=== PATIENT | female | born 1985 | race Caucasian/White ===

== ENCOUNTER → 2019-12-19 09:14 | Outpatient (CLI) | payer BC, SELFPAY ==
--- NOTE | ~2019-12-19 | XR_ITS ---
EXAMINATION: XR chest 2V DATE: 12/19/2019 09:28 INDICATION: Segmental and somatic dysfunction of the rib cage. TECHNIQUE: PA and lateral views of the chest were obtained. COMPARISON: None FINDINGS: The lungs are clear with no focal airspace opacities, pulmonary edema, pleural effusion or pneumothor ax. The cardiomediastinal silhouette is normal. Bilateral breast implants. Mild thoracic spondylosis. Bones are otherwise unremarkable. IMPRESSION: 1. No acute cardiopulmonary disease. Reviewed, dictated and finalized at location A.
== END ==
PROVIDERS: PCP Family Medicine; Visit Provider Family Medicine
DX: M99.08 Segmental and somatic dysfunction of rib cage (principal)
CPT/HCPCS: 71046

== ENCOUNTER → 2022-01-20 08:58 | Outpatient (CLI) | payer BC, SELFPAY ==
--- NOTE | ~2022-01-20 | US_ITS ---
US soft tissue lower back DATE: 01/20/2022 09:15 INDICATION: Localized swelling, lump at mid lower back for one day. Pain for 3 days. TECHNIQUE: Real-time and color flow imaging targeted to mid lower back at the area of the reported pa lpable lump COMPARISON: None FINDINGS: There is an approximately 3.4 x 2.7 x 3.6 mm hypoechoic nonspecific solid lesion with inter nal vascularity on color flow imaging. IMPRESSION: Nonspecific approximately 3.6 mm mass with internal vascularity at area of clinical compl aint of lump Reviewed, dictated and finalized at Location A. Reviewed, dictated and finalized at location A. IMPRESSION: Nonspecific approximately 3.6 mm mass with internal vascularity at area of clinical complaint of lump
--- NOTE | ~2022-01-20 | XR_ITS ---
XR thoracic spine 3V DATE: 01/20/2022 10:56 INDICATION: Back pain TECHNIQUE: AP, lateral, swimmer views COMPARISON: None FINDINGS: There is minimal levoscoliosis and mild degenerative spurring of the thoracic spine. No fracture or bone destruction. The thoracic pedicles are intact. No paraspinal soft tissue thickeni ng. IMPRESSION: Minimal levoscoliosis Mild degenerative spurring Reviewed, dictated and finalized at location A.
--- NOTE | ~2022-01-20 | XR_ITS ---
XR lumbar spine 2-3V DATE: 01/20/2022 10:56 INDICATION: Back pain TECHNIQUE: AP, lateral, coned lateral lumbosacral views COMPARISON: None FINDINGS: Normal alignment of the lumbar spine. No fracture or bone destruction or spondylolisthesis. Lumbar and included lower thoracic pedicles are intact. Lumbar and lumbosacral interspaces are well preserved. 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
== END ==
PROVIDERS: PCP Family Medicine; Visit Provider Family Medicine
DX: R22.2 Localized swelling, mass and lump, trunk (principal); M54.9 Dorsalgia, unspecified; M85.38 Osteitis condensans, other site
CPT/HCPCS: 72072; 72100; 76705

== ENCOUNTER → 2022-01-24 13:24 | Outpatient (CLI) | payer BC, SELFPAY ==
--- NOTE | ~2022-01-24 | MR_ITS ---
EXAMINATION: MR thoracic spine wo/w con DATE: 01/24/2022 14:37 INDICATION: Localized swelling, mass, and lump, trunk. TECHNIQUE: Magnetic resonance imaging (MRI) of the thoracic spine was performed without and with 15 m L MultiHance intravenous contrast. COMPARISON: Thoracic spine radiographs 01/20/2022 FINDINGS: Bone alignment is normal. There is mild chronic anterior wedging of T7 vertebral body. Ther e are Schmorl's nodes at multiple levels. Intervertebral disc heights are normal. The disc does not e xtend beyond the endplate margins. There is multilevel facet joint osteoarthritis. On the right, ther e is mild neural foraminal stenosis at T4-T5. On the left, there is mild neural foraminal stenosis at T4-T5 and T5-T6. The spinal cord signal intensity is normal. The conus medullaris is at T12-L1. Ther e is a skin marker superficial to the T12 spinous process. There is no abnormal mass in this area. IMPRESSION: 1. No abnormal mass in the patient's area of concern. 2. Mild thoracic spondylosis. Reviewed, dictated and finalized at location B.
[2022-01-24 13:58] LABS: Estimated Glomerular Filt Rate > 60
== END ==
PROVIDERS: PCP Family Medicine; Visit Provider Family Medicine
DX: R22.2 Localized swelling, mass and lump, trunk (principal); M47.815 Spondylosis without myelopathy or radiculopathy, thoracolumbar region; M48.05 Spinal stenosis, thoracolumbar region
CPT/HCPCS: 72157; A9577

== ENCOUNTER 2023-06-21 09:05 | Outpatient (CLI) | payer BC, SELFPAY ==
[2023-06-21 16:34] LABS: Hematocrit 40.6 % (37.0-47.0); Mean Corpuscular Hemoglobin 30.5 pg (26-34); Mean Corpuscular Volume 95.3 fl (80-100); Mean Platelet Volume 11.2 fl (7.4-10.4); Platelet Count Result 238 k/mm3 (150-375); Red Blood Count 4.26 M/mm3 (4.2-5.4); Red Cell Distribution Width 12.1 % (11.5-14.5); White Blood Count 4.1 K/mm3 (4.5-10.0)
[2023-06-21 19:50] LABS: Alanine Aminotransferase 44 U/L (6-35); Albumin Level 4.4 g/dL (3.5-5.1); Alkaline Phosphatase 55 U/L (38-126); Anion Gap 4 mmol/L (8-16); Aspartate Amino Transferase 46 U/L (14-36); Bilirubin,Total 0.6 mg/dL (0.2-1.3); Blood Urea Nitrogen 11 mg/dL (7-17); Calcium 9.5 mg/dL (8.4-10.2); Carbon Dioxide 28 mmol/L (22-30); Chloride 104 mmol/L (98-107); Cholesterol 175 mg/dL (0-200); Estimated Glomerular Filt Rate > 60; Glucose 82 mg/dL (65-110); HDL Direct 89 mg/dL; Potassium 4.4 mmol/L (3.4-5.0); Sodium 136 mmol/L (137-145); Triglycerides 37 mg/dL (<150)
[2023-06-21 20:01] LABS: LDL Cholesterol Direct 65 mg/dL
[2023-06-25 03:48] LABS: Vitamin D 1,25 (OH)2 Total <8 pg/mL (18-72); Vitamin D2 1,25 (OH)2 <8 pg/mL; Vitamin D3 1,25 (OH)2 <8 pg/mL
== END 2023-06-21 09:06 | disposition home or self-care (01) ==
LOC: ANHGOSHLAB 09:08
PROVIDERS: PCP Family Medicine; Visit Provider Family Medicine
DX: F41.9 Anxiety disorder, unspecified (principal); E66.3 Overweight; E55.9 Vitamin D deficiency, unspecified; Z79.899 Other long term (current) drug therapy
CPT/HCPCS: 36415; 80053; 80061; 82652; 84443; 85027

== ENCOUNTER → 2023-08-09 15:03 | Outpatient (CLI) | payer BC, SELFPAY ==
--- NOTE | ~2023-08-09 | XR_ITS ---
EXAMINATION: XR chest 2V DATE: 08/09/2023 15:19 INDICATION: Cough. TECHNIQUE: Frontal and lateral views of the chest were obtained. COMPARISON: Chest 2 views 12/11/2019 FINDINGS: There are airspace opacities in left lower lung zone. No pleural effusion or pneumothorax. The heart size is normal. Breast implants are noted. IMPRESSION: 1. Airspace opacities in left lower lung zone, consistent with atelectasis versus pneumonia. Reviewed, dictated and finalized at location A. 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 Airspace opacities in left lower lung zone, consistent with atelectasis vers us pneumonia.
== END ==
PROVIDERS: PCP Family Medicine; Visit Provider Family Medicine
DX: R05.9 Cough, unspecified (principal); R91.8 Other nonspecific abnormal finding of lung field
CPT/HCPCS: 71046

== ENCOUNTER 2023-09-22 11:30 | Emergency (ER) | payer BC, SELFPAY ==
[2023-09-22 12:01] VITALS: BP 128/98; PULSE 81; RESP 20; TEMP 36.1; O2SAT 100
--- NOTE | 2023-09-22 12:16 | ED.FEMALEGU ---
HPI - Female Genitourinary General Chief complaint: Urogenital-Female Stated complaint: UTI SYMPTOMS Time Seen by Provider: 09/22/23 12:16 Source: patient Mode of arrival: ambulatory Limitations: no limitations History of Present Illness HPI Narrative: 38-year-old female presents with complaint of dysuria, urgency, frequency, low back pain for friend to 6 days. Afebrile. Denies nausea vomiting. No abdominal pain. No concern for . All systems reviewed and negative except as noted above. Related Data Allergies Allergy/AdvReac Type Severity Reaction Status Date / Time amoxicillin Allergy Unknown yeast Verified 08/09/23 11:51 infection Review of Systems Review of Systems: CONSTITUTIONAL: Denies fever, chills, or sweats. EYES: Denies visual changes, redness, or discharge. ENT: Denies rhinorrhea, congestion, sore throat, or otalgia. CARDIOVASCULAR: Denies chest pain, palpitations, or edema. RESPIRATORY: Denies cough or dyspnea. GASTROINTESTINAL: Denies abdominal pain, nausea, vomiting, or diarrhea. GENITOURINARY: Reports dysuria, frequency, urgency. Denies hematuria. SKIN: Denies rash or itching. MUSCULOSKELETAL: Denies back pain, joint pain, or myalgia. NEUROLOGIC: Denies headache, numbness, or weakness. PSYCHIATRIC: Denies anxiety or depression. All other systems reviewed are negative, except as documented in HPI. PMFSH Social History Social History (Updated 06/21/23 @ 08:19 by eGraldine Calvo MA) Smoking status: Never smoker Alcohol intake: current Alcohol use details: weekends Substance use: never Substance use type: does not use Lack of Transportation: No Lack of Food: Never True Current Housing: I Have Housing Concerned About Future Housing: No Difficulty Paying Gas/Electric Bills: No Difficulty Paying for Meds: No Currently Unemployed: No Education: Trade/Vocational Certificate Living arrangements: with family Occupation/Education: occupation Comments At time of signature, agree with nursing past medical, surgical, social and family history. There is no relevant family history pertinent to the presenting complaint. Exam Narrative: GENERAL: This is a well-nourished, well-developed patient, in no apparent distress. HEAD: normocephalic, atraumatic. EYES: PERRL. Sclera clear/white. Vision is grossly intact. EARS: External ears normal NOSE: External nose normal NECK: Neck supple, non-tender without lymphadenopathy, masses or thyromegaly. CARDIOVASCULAR: Regular rate and rhythm without murmurs, gallops, or rubs. RESPIRATORY: Clear to auscultation. Breath sounds equal bilaterally. No wheezes, rales, or rhonchi. SKIN: warm, Dry, intact with no suspicious lesions or rash, good texture and turgor. NEURO: awake, alert, and oriented to person, place and time. There were no obvious focal neurologic abnormalities. EXTREMITIES: No joint tenderness, effusion, or edema noted. Course Course Level of Care: Express Care Visit Vital Signs Vital signs: Vital Signs Temperature 36.1 C L 09/22/23 12:01 Pulse Rate 81 09/22/23 12:01 Respiratory Rate 20 09/22/23 12:01 Blood Pressure 128/98 H 09/22/23 12:01 Pulse Oximetry 100 09/22/23 12:01 Oxygen Delivery Room Air 09/22/23 12:01 Temperature 36.1 C L 09/22/23 12:01 Pulse Rate 81 09/22/23 12:01 Respiratory Rate 20 09/22/23 12:01 Blood Pressure 128/98 H 09/22/23 12:01 Pulse Oximetry 100 09/22/23 12:01 Oxygen Delivery Room Air 09/22/23 12:01 Reviewed MDM - Female Genitourinary MDM Narrative Medical decision making narrative: Patient is aware of diagnosis, understands and agrees to treatment plan. Anticipatory guidance given. Patient agrees to follow-up as directed and is aware of reasons to seek care at the emergency department. Portions of this record may have been created with voice recognition software Calluses positive for leukocytes and blood. Will treat with Ba
== END 2023-09-22 12:42 | disposition home or self-care (01) ==
PROVIDERS: Emergency Provider Nurse Practitioner Family; PCP Family Medicine
DX: N39.0 Urinary tract infection, site not specified (principal)
CPT/HCPCS: 81003; 99213; G0463

== ENCOUNTER 2024-04-10 12:27 | Outpatient (CLI) | payer BC, SELFPAY | END 2024-04-10 12:28 | PROVIDERS: PCP Family Medicine; Visit Provider Student in an Organized Health Care Education/Training Program | DX: M79.674 Pain in right toe(s) (principal); S99.921A Unspecified injury of right foot, initial encounter; X58.XXXA Exposure to other specified factors, initial encounter | CPT/HCPCS: 73630 ==

== ENCOUNTER 2024-11-19 08:10 | Outpatient (CLI) | payer BC, SELFPAY | END 2024-11-19 08:11 | disposition home or self-care (01) | LOC: GOSHIMG 08:11 | PROVIDERS: PCP Nurse Practitioner; Visit Provider Nurse Practitioner | DX: M79.89 Other specified soft tissue disorders (principal) | CPT/HCPCS: 73620 ==

== ENCOUNTER 2024-12-01 10:16 | Outpatient (CLI) | payer BC, SELFPAY ==
[2024-12-01 13:45] LABS: Alanine Aminotransferase 29 U/L (6-35); Albumin Level 4.6 g/dL (3.5-5.1); Alkaline Phosphatase 59 U/L (38-126); Anion Gap 11 mmol/L (4-12); Aspartate Amino Transferase 46 U/L (14-36); Bilirubin,Total 0.5 mg/dL (0.2-1.3); Blood Urea Nitrogen 16 mg/dL (7-17); Calcium 9.7 mg/dL (8.4-10.2); Carbon Dioxide 25 mmol/L (22-30); Chloride 103 mmol/L (98-107); Cholesterol 158 mg/dL (0-200); Estimated Glomerular Filt Rate > 60; Glucose 84 mg/dL (65-110); HDL Direct 69 mg/dL; Potassium 4.5 mmol/L (3.4-5.0); Sodium 139 mmol/L (137-145); Triglycerides 34 mg/dL (<150)
[2024-12-01 13:57] LABS: LDL Cholesterol Direct 65 mg/dL
[2024-12-01 14:28] LABS: Hematocrit 41.3 % (37.0-47.0); Hemoglobin 13.4 g/dL (12.0-15.0); Mean Corpuscular HGB Conc 32.4 g/dl (32-36); Mean Corpuscular Volume 92.4 fl (80-100); Mean Platelet Volume 11.6 fl (7.4-10.4); Platelet Count Result 242 k/mm3 (150-375); Red Blood Count 4.47 M/mm3 (4.2-5.4); White Blood Count 4.7 K/mm3 (4.5-10.0)
== END 2024-12-01 10:17 | disposition home or self-care (01) ==
LOC: ANHGOSHLAB 10:17
PROVIDERS: PCP Family Medicine; Visit Provider Family Medicine
DX: R74.8 Abnormal levels of other serum enzymes (principal); F41.9 Anxiety disorder, unspecified; E55.9 Vitamin D deficiency, unspecified; E66.9 Obesity, unspecified; Z79.899 Other long term (current) drug therapy
CPT/HCPCS: 36415; 80053; 80061; 82652; 84443; 85027

== ENCOUNTER 2025-01-06 08:09 | Outpatient (CLI) | payer BC, SELFPAY ==
[2025-01-06 13:51] LABS: Alanine Aminotransferase 18 U/L (6-35); Albumin Level 4.3 g/dL (3.5-5.1); Alkaline Phosphatase 45 U/L (38-126); Anion Gap 9 mmol/L (4-12); Aspartate Amino Transferase 33 U/L (14-36); Bilirubin,Total 0.5 mg/dL (0.2-1.3); Blood Urea Nitrogen 9 mg/dL (7-17); Calcium 9.5 mg/dL (8.4-10.2); Carbon Dioxide 24 mmol/L (22-30); Chloride 104 mmol/L (98-107); Estimated Glomerular Filt Rate > 60; Glucose 66 mg/dL (65-110); Potassium 4.4 mmol/L (3.4-5.0); Sodium 137 mmol/L (137-145)
== END 2025-01-06 08:10 | disposition home or self-care (01) ==
LOC: ANHGOSHLAB 08:10
PROVIDERS: PCP Family Medicine; Visit Provider Family Medicine
DX: R74.8 Abnormal levels of other serum enzymes (principal); Z79.899 Other long term (current) drug therapy
CPT/HCPCS: 36415; 80053

== ENCOUNTER 2025-01-15 01:10 | Day surgery (SDC) | payer BC, SELFPAY ==
[2025-01-06 09:13] VITALS: BMI 28.8
--- NOTE | 2025-01-06 09:39 | SUR.PREOP ---
Report to the Outpatient Waiting Room, entrance under the green pavilion located off [facility], at time 1200 on date 01/15/25. Planned Procedure Time:1400.? Time changes happen often and if your time is changed the preop area will call you the afternoon before. - You and your visitor will be asked to self-screen and do not enter if you have any COVID symptoms. Please call surgeon if you need to reschedule. - A mask is optional within the hospital at this time. Patients may have clear liquids (water, carbonated beverages, clear teas, apple juice) until 3 hours prior to surgery with a maximum of 20 ounces. - No food from midnight until time of surgery and no smoking, or chewing tobacco (or any form of nicotine). No chewing gum, candy or mints. - Infants may have breast milk until 4 hours before surgery, infant formula 6 hours prior to surgery. - Children will be allowed to drink immediately following surgery.? If applicable, please bring a bottle or sippy cup to assist with drinking. Juice, water, soda, and popsicles are readily available.? For infants on formula, please bring formula the day of surgery.? Pacifiers are allowed. Take only the following medications with a SIP of water on the morning of surgery: n/a DO NOT STOP ANY OF YOUR OTHER PRESCRIPTION MEDICATIONS PRIOR TO SURGERY EXCEPT THE FOLLOWING Hold all vitamins and supplements for 3 days per anesthesiologist. Medications to discontinue per physician ___pt stated she is holding tirzepatide for 2 weeks, hold multivitamins for 3 days prior to surgery___ Date to take last dose Please no make-up, nail z[place], hairspray, perfume, deodorant, or body powder the day of surgery.? No jewelry (including any body piercings) or valuables the day of surgery, leave them at home.? Please take a shower or bath the night before, or the morning of, surgery with an antibacterial soap.? Wear comfortable, loose fitting clothing.? Children are encouraged to wear pajamas. - Jewelry must be removed prior to entering the operating room.? Rings and piercings that are not removed may be cut off. - The hospital will not accept responsibility for valuables.? - Please leave all valuables, including medications, at home the day of surgery. If you are going home after surgery, a licensed service car driver must drive you home.? - NO public transportation without another adult if you receive anesthesia. - We recommend that an adult stay with you for 24 hours following discharge. - We also recommend that you do not drive, make important decision, drink alcoholic beverages, or take any drugs that were not prescribed by your health care provider for at least 24 hours after your discharge time. For Pediatric surgeries, we recommend two adults accompany the child home. Follow any additional instructions given to you from your surgeon. Telephone instructions given to _patient_and asked if any additional questions and then verbalized understanding. Patient advised to call surgeon office or pre surgery nurse liaison [phone] if any additional questions.
--- NOTE | 2025-01-12 13:08 | P.HP_ITS ---
H&P: HPI History of Present Illness Date/Time: 01/12/25 13:08 Chief Complaint: Excessive heavy vaginal bleeding Narrative: 31-year-old 3 para 3 admitted for hysteroscopy/dilatation curettage secondary to heavy bleeding. Ultrasound showed some irregular thickening of the upper part of the uterus. She will undergo hysteroscopy dilatation curettage. Risks and benefits reviewed including exclusive of , aspiration pneumonia cut off under to the bladder, ureters, or other intolerance of the open laparotomy. She received the ACOG handout entitled hysteroscopy as well as dilatation curettage. She had all questions answered. She asked to proceed Review of Systems Review of Systems: CONSTITUTIONAL: Denies fever, chills, or sweats. EYES: Denies visual changes, redness, or discharge. ENT: Denies rhinorrhea, congestion, sore throat, or otalgia. CARDIOVASCULAR: Denies chest pain, palpitations, or edema. RESPIRATORY: Denies cough or dyspnea. GASTROINTESTINAL: Denies abdominal pain, nausea, vomiting, or diarrhea. GENITOURINARY: Reports dysuria, frequency, urgency. Denies hematuria. SKIN: Denies rash or itching. MUSCULOSKELETAL: Denies back pain, joint pain, or myalgia. NEUROLOGIC: Denies headache, numbness, or weakness. PSYCHIATRIC: Denies anxiety or depression. All other systems reviewed are negative, except as documented in HPI. [facility] Social History Social History Smoking status: Never smoker Alcohol intake: current Alcohol use details: weekends Substance use: never Substance use type: does not use Lack of Transportation: No Lack of Food: Never True Current Housing: I Have Housing Concerned About Future Housing: No Difficulty Paying Gas/Electric Bills: No Difficulty Paying for Meds: No Currently Unemployed: No Education: Trade/Vocational Certificate Living arrangements: with family Occupation/Education: occupation Meds Home Medications and Allergies Home Medications ?Medication ?Instructions ?Recorded ?Confirmed ?Type tirzepatide (weight loss) 5 mg/0.5 5 mg (0.5 mL) subcut WEEKLY #2 mL 12/10/24 01/06/25 Rx mL subcutaneous pen injector (Zepbound) Allergies Allergy/AdvReac Type Severity Reaction Status Date / Time amoxicillin Allergy Unknown yeast Verified 01/06/25 09:38 infection Exam Const: General: cooperative, healthy appearing, comfortable and average body habitus Orientation/consciousness: oriented to person, oriented to place and oriented to time HENMT: Head: normal to inspection Resp: Effort & Inspection: normal respiratory effort Cardio: Rate: regular rate Rhythm: regular rhythm Heart sounds: S1 normal heart sound present and S2 normal heart sound present GI: Inspection: normal to inspection : External Female Exam: normal external appearance Speculum Exam - Vagina: normal appearance of the vagina Speculum Exam - Cervix: normal appearance of the cervix Bimanual exam- vagina & uterus: soft Bimanual Exam- Adnexa, other: normal adnexae Assessment and Plan Assessment and plan (1) Menorrhagia: Code(s): N92.0 - Excessive and frequent menstruation with regular cycle Status: Acute Plan Will proceed with hysteroscopy/dilatation and curettage
--- NOTE | 2025-01-15 07:26 | WPDHPUPDATE1 ---
History and Physical Update Update Date/Time: 01/15/25 07:26 History and Physical has been reviewed, including an updated exam of the patient. There are NO changes in the patient's condition. Risks, benefits, and alternatives have been discussed and questions answered. Patient agrees to proceed with procedure.
--- NOTE | 2025-01-15 11:08 | P.PNAN_ITS ---
Anes - Initial Pre Proc Eval Procedure: Operation Date: 01/15/25 12:30 Proposed Procedures p Hysteroscopy Dilation and Curettage - Manohar Deshpande MD Date/Time: 01/15/25 11:08 Surgeon: Manohar Deshpande MD Pre Op Diagnosis: heavy bleeding Patient Data Age: 39 Gender: F Height: 1.73 m Weight: 86.18 kg Allergies Allergy/AdvReac Type Severity Reaction Status Date / Time amoxicillin Allergy Unknown yeast Verified 01/06/25 09:38 infection Home Medications ?Medication ?Instructions ?Recorded ?Confirmed ?Type tirzepatide (weight loss) 5 mg/0.5 5 mg (0.5 mL) subcut WEEKLY #2 mL 12/10/24 01/06/25 Rx mL subcutaneous pen injector (Zepbound) hydrocodone 5 mg-acetaminophen 325 1 tablet PO Q4H PRN pain #14 tabs 01/15/25 Rx mg tablet Patient hx anesthesia problems: none Family hx anesthesia problems: none Results Review: All pre-operative results and documents have been reviewed as part of the pre- operative evaluation. [facility] Social History Social History Smoking status: Never smoker Alcohol intake: current Alcohol use details: weekends Substance use: never Substance use type: does not use Lack of Transportation: No Lack of Food: Never True Current Housing: I Have Housing Concerned About Future Housing: No Difficulty Paying Gas/Electric Bills: No Difficulty Paying for Meds: No Currently Unemployed: No Education: Trade/Vocational Certificate Living arrangements: with family Occupation/Education: occupation Anes - Eval Final PreProcedure Day of Procedure 01/15/25 11:08 Patient weight: overweight Heart: regular rate and rhythm Lungs: clear to auscultation Airway: Mallampati scale class II Neurological: alert and oriented Last oral intake: >/= 8 hours ASA classification: II Emergent: no Anesthetic plan: proceed Anesthesia type and monitoring: general GIVS and standard monitoring Results Review: All pre-operative results and documents have been reviewed as part of the pre- operative evaluation. Informed Consent: The patient's anesthetic plan and its attendant risks and benefits were discussed with the patient/family/POA. Questions were solicited and answers provided to the satisfaction of the patient/family/POA.
[2025-01-15 11:24] VITALS: BP 125/83; PULSE 86; TEMP 36.9; BMI 29.0
[2025-01-15] MEDS: LACTATED RINGERS 1,000 ML 30 ML IV CONT (11:27)
[2025-01-15] MEDS: SCOPOLAMINE 1 MG PATCH 1 PATCH TRANSDERM (11:27)
[2025-01-15] MEDS: ACETAMINOPHEN 500 MG TABLET 1000 MG PO (11:28)
[2025-01-15 11:30] LABS: BEDSIDEPREGUCG Negative (Negative)
[2025-01-15] MEDS: KETOROLAC 30 MG/ML VIAL (*BKC) IV PUSH (12:16)
[2025-01-15] MEDS: LIDOCAINE 1% LOCAL INJ 10 ML VIAL INFILTRATE (12:19)
--- NOTE | 2025-01-15 12:26 | W.PM.PROC2 ---
Procedure Note - Detailed Date of Procedure 01/15/25 Pre-op Diagnosis heavy bleeding Post-op Diagnosis Same Procedure Performed Hysteroscopy/dilatation curettage/polypectomy Surgeon Manohar Deshpande MD Anesthesia MAC and Local Indications 39-year-old history of thickened endometrium imaging Findings Small uterine polyp with fundus. Benign thick endometrial tissue present. Description of Procedure Patient was prepped draped in the normal sterile fashion placed in the dorsal lithotomy position. Under excellent IV sedation weighted speculum placed in posterior fornix vagina. Anterior lip of the cervix grasped with a single-tooth tenaculum. 2.5cc of 1% xylocaine anesthesia placed equally at 2, 4, 8, 10:00 a.m. of the cervix. Uterus sounded to 8cm. Serial dilatation fragmented dilators followed by passage of the 5mm visualizing saline was used as visualizing medium. Small polyp was seen at the uterine fundus and thickened endometrial tissue. The uterus was scraped over the entire 360? after used using the small along with the polyp. Instruments withdrawn blood loss estimated 5cc. All sponge, needle, instrument counts were immediate complications Estimated Blood Loss 5 Drains No Packing No Pathology Yes Complications No immediate complications Condition Stable Disposition PACU
[2025-01-15 12:28] VITALS: BP 83/56; PULSE 77; RESP 16; O2SAT 98
[2025-01-15] MEDS: oxyCODONE HCL (*CRX) 5 MG TAB IR PO (12:56)
[2025-01-15 12:58] VITALS: BP 101/61; PULSE 69; RESP 18
[2025-01-15 13:28] VITALS: BP 119/76; PULSE 65; RESP 18
== END 2025-01-15 13:42 | disposition home or self-care (01) ==
PROVIDERS: PCP Family Medicine; Visit Provider Obstetrics & Gynecology
PROC: 0U5B8ZZ Destruction of Endometrium, Via Natural or Artificial Opening Endoscopic (ICD-10-PCS; CPT 58563; principal; 2025-01-15 12:30)
DX: R93.89 Abnormal findings on diagnostic imaging of other specified body structures (principal); N84.0 Polyp of corpus uteri; Z79.85 Long-term (current) use of injectable non-insulin antidiabetic drugs; Z79.891 Long term (current) use of opiate analgesic
CPT/HCPCS: 58558; 88305; A9270; J1885; J2003; J2250; J2405; J2704; J3010; J7120

== ENCOUNTER 2025-08-05 12:57 | Outpatient (CLI) | payer BC, SELFPAY ==
--- OUTSIDE RECORDS SUMMARY | 2025-08-05 13:42 | XMS_ITS ---
Author Organization Unknown ENCOUNTERS Encounter Performer Location Date Diagnosis Diagnosis Status Outpatient [facility] [address] [place] [address] [id number] Outpatient [facility] [address] [place] [address] [id number] JOSE EDUARDO Outpatient [facility] [address] [place] [address] [id number] JOSE EDUARDO Outpatient [facility] [address] [place] [address] [id number] JOSE EDUARDO Outpatient [facility] [address] [place] [id number] JOSE EDUARDO *Note: Encounters from your own facility or health system may be excluded. Allergies, Adverse Reactions, Alerts Allergen Type Severity Identification Date codeine drug allergy 3 [id number] amoxicillin drug allergy 3 [id number] Medications Name Date Quantity Days Supplied GPI Number
[2025-08-05 14:27] LABS: Hematocrit 36.8 % (37.0-47.0); Hemoglobin 11.8 g/dL (12.0-15.0); Immature Granulocyte Percent A 0.2 % (0-0.5); Lymphocytes Absolute Auto 1.63 K/mm3 (0.9-3.2); Mean Corpuscular HGB Conc 32.1 g/dl (32-36); Mean Corpuscular Hemoglobin 29.6 pg (26-34); Mean Corpuscular Volume 92.5 fl (80-100); Nucleated Red Blood Cells Absolute Auto 0.000 K/mm3 (0.0-0.012); Nucleated Red Blood Cells Perc 0.0 % (0.0-0.2); Platelet Count Result 187 k/mm3 (150-375); Red Blood Count 3.98 M/mm3 (4.2-5.4); White Blood Count 4.4 K/mm3 (4.5-10.0)
== END 2025-08-05 12:58 | disposition home or self-care (01) ==
LOC: ANHSURGERY 13:01
PROVIDERS: PCP Family Medicine; Visit Provider Obstetrics & Gynecology
DX: N92.0 Excessive and frequent menstruation with regular cycle (principal); R10.20 Pelvic and perineal pain unspecified side
CPT/HCPCS: 36415; 85025; 86850; 86900; 86901

== ENCOUNTER 2025-08-13 01:39 | Day surgery (SDC) | payer BC, SELFPAY ==
[2025-08-04 10:42] VITALS: BMI 21.6
--- NOTE | 2025-08-04 10:51 | PC.NURSE ---
[facility] has started construction of its new state of the art ER which will open Spring 2026. With this, we anticipate parking may be a challenge for some our surgical patients and families. Parking spaces are limited but are available for all Surgical, obstetrics, and ER patients sharing this lot. If you arrive and find you are having a hard time finding a parking space, please note that we understand the challenges, please drive around the hospital and park near Hospital Entrance 1. When you enter this entrance, you can ask a volunteer to direct or take you back to the surgical waiting area to check in. We appreciate everyone?s understanding of these expected challenges while we build for your future. Report to the Outpatient Waiting Room, entrance under the green pavilion located off [address], at time _0930_ on date _[id number]_. Planned Procedure Time: _1130_.? Time changes happen often and if your time is changed the preop area will call you the afternoon before. - You and your visitor will be asked to self-screen and do not enter if you have any COVID symptoms. Please call surgeon if you need to reschedule. - A mask is optional within the hospital at this time. Patients may have clear liquids (water, carbonated beverages, clear teas, apple juice) until 3 hours prior to surgery with a maximum of 20 ounces. - No food from midnight until time of surgery and no smoking, or chewing tobacco (or any form of nicotine). No chewing gum, candy or mints. Take only the following medications with a SIP of water on the morning of surgery: ___None____ DO NOT STOP ANY OF YOUR OTHER PRESCRIPTION MEDICATIONS PRIOR TO SURGERY EXCEPT THE FOLLOWING Hold all vitamins and supplements for 3 days per anesthesiologist. Medications to discontinue per physician Patient last took Zepbound 07-26-2025. Continue to hold until after surgery.____ Date to take last dose Please no make-up, nail citizen of [place], hairspray, perfume, deodorant, or body powder the day of surgery.? No jewelry (including any body piercings) or valuables the day of surgery, leave them at home.? Please take a shower or bath the night before, or the morning of, surgery with an antibacterial soap.? Wear comfortable, loose fitting clothing.? - Jewelry must be removed prior to entering the operating room.? Rings and piercings that are not removed may be cut off. - The hospital will not accept responsibility for valuables.? - Please leave all valuables, including medications, at home the day of surgery. If you are going home after surgery, a licensed tram driver must drive you home.? - NO public transportation without another adult if you receive anesthesia. - We recommend that an adult stay with you for 24 hours following discharge. - We also recommend that you do not drive, make important decision, drink alcoholic beverages, or take any drugs that were not prescribed by your health care provider for at least 24 hours after your discharge time. Follow any additional instructions given to you from your surgeon. Telephone instructions given to _Michelle__and asked if any additional questions and then verbalized understanding. Patient advised to call surgeon office or pre surgery nurse liaison [phone] if any additional questions.
--- NOTE | 2025-08-10 07:24 | P.HP_ITS ---
H&P: HPI History of Present Illness Date/Time: 08/10/25 07:24 Chief Complaint: Pelvic pain/pelvic prolapse/bleeding refractory medical therapy Narrative: Is a 39-year-old multiparous patient admitted for robotic hysterectomy bilateral salpingectomy secondary to pelvic pain second-degree prolapse and bleeding refractory to medical therapy medical therapy has been on helpful. Risks and benefits of this procedure reviewed including not exclusive of , aspiration pneumonia, bleeding, transfusion, perforation injury to bowel, bladder, ureters, or other internal organs with need for open laparotomy. She received the [employer] handout entitled hysterectomy as well as the de Lesly handout. She had all questions answered. She asked to proceed Review of Systems Review of Systems: CONSTITUTIONAL: Denies fever, chills, or sweats. EYES: Denies visual changes, redness, or discharge. ENT: Denies rhinorrhea, congestion, sore throat, or otalgia. CARDIOVASCULAR: Denies chest pain, palpitations, or edema. RESPIRATORY: Denies cough or dyspnea. GASTROINTESTINAL: Denies abdominal pain, nausea, vomiting, or diarrhea. GENITOURINARY: Reports dysuria, frequency, urgency. Denies hematuria. SKIN: Denies rash or itching. MUSCULOSKELETAL: Denies back pain, joint pain, or myalgia. NEUROLOGIC: Denies headache, numbness, or weakness. PSYCHIATRIC: Denies anxiety or depression. All other systems reviewed are negative, except as documented in HPI. [facility] Social History Social History Smoking status: Never smoker Alcohol intake: current Alcohol use details: weekends Substance use: never Substance use type: does not use Lack of Transportation: No Lack of Food: Never True Current Housing: I Have Housing Concerned About Future Housing: No Difficulty Paying Gas/Electric Bills: No Difficulty Paying for Meds: No Currently Unemployed: No Education: Trade/Vocational Certificate Living arrangements: with family Occupation/Education: occupation Spiritual care concerns: No Meds Home Medications and Allergies Home Medications ?Medication ?Instructions ?Recorded ?Confirmed ?Type tirzepatide (weight loss) 7.5 7.5 mg (0.5 mL) ministeriout Hussain CARLIN #2 mL 07/26/25 08/04/25 Rx mg/0.5 mL subcutaneous pen injector (Zepbound) Allergies Allergy/AdvReac Type Severity Reaction Status Date / Time amoxicillin Allergy Unknown yeast Verified 08/04/25 10:41 infection Exam Const: General: cooperative, healthy appearing and comfortable Nutritional Appearance: average body habitus Orientation/consciousness: oriented to perso n, oriented to place and oriented to time Resp: Effort & Inspection: normal respiratory effort Cardio: Rate: regular rate Rhythm: regular rhythm Heart sounds: S1 normal heart sound present and S2 normal heart sound present GI: Inspection: normal to inspection : External Female Exam: normal external appearance Speculum Exam - Vagina: normal appearance of the vagina Speculum Exam - Cervix: normal appearance of the cervix (Second-degree prolapse) Bimanual exam- vagina & uterus: enlarged and Uterine tenderness Bimanual Exam- Adnexa, other: normal adnexae Assessment and Plan Assessment and plan (1) Menorrhagia: Code(s): N92.0 - Excessive and frequent menstruation with regular cycle Status: Acute (2) Pelvic pain: Code(s): R10.20 - Pelvic and perineal pain unspecified side Status: Acute (3) Uterine prolapse: Code(s): N81.4 - Uterovaginal prolapse, unspecified Status: Acute Plan Proceed with robotic total vaginectomy bilateral salpingectomy
[2025-08-13] VITALS (13 sets, daily range): BP systolic 85–121; BP diastolic 53–76; PULSE 57–79; RESP 12–20; TEMP 36.1–36.9; O2SAT 99–100
--- NOTE | 2025-08-13 06:30 | WPDHPUPDATE1 ---
History and Physical Update Update Date/Time: 08/13/25 06:30 History and Physical has been reviewed, including an updated exam of the patient. There are NO changes in the patient's condition. Risks, benefits, and alternatives have been discussed and questions answered. Patient agrees to proceed with procedure.
[2025-08-13] MEDS: SCOPOLAMINE 1 MG PATCH 1 PATCH TRANSDERM (08:50)
--- NOTE | 2025-08-13 10:27 | P.PNAN_ITS ---
Anes - Initial Pre Proc Eval Procedure: Operation Date: 08/13/25 11:30 Proposed Procedures p Robotic Assisted Total Vaginal Hysterectomy with Bilateral Salpingectomy - Manohar Deshpande MD Date/Time: 08/13/25 10:27 Surgeon: Manohar Deshpande MD Pre Op Diagnosis: Uterine prolapse, dyspareunia,pelvic pain Patient Data Age: 39 Gender: F Height: 1.71 m Weight: 63.6 kg Allergies Allergy/AdvReac Type Severity Reaction Status Date / Time amoxicillin Allergy Unknown yeast Verified 08/04/25 10:41 infection Home Medications ?Medication ?Instructions ?Recorded ?Confirmed ?Type tirzepatide (weight loss) 7.5 7.5 mg (0.5 mL) subcut W EEKLY #2 mL 07/26/25 08/04/25 Rx mg/0.5 mL subcutaneous pen injector (Zepbound) hydrocodone 5 mg-acetaminophen 325 1 tablet PO Q4H PRN pain #20 tabs 08/13/25 Rx mg tablet Patient hx anesthesia problems: post op nausea/vomiting Family hx anesthesia problems: none Results Review: All pre-operative results and documents have been reviewed as part of the pre- operative evaluation. [facility] Social History Social History Smoking status: Never smoker Alcohol intake: current Alcohol use details: weekends Substance use: never Substance use type: does not use Lack of Transportation: No Lack of Food: Never True Current Housing: I Have Housing Concerned About Future Housing: No Difficulty Paying Gas/Electric Bills: No Difficulty Paying for Meds: No Currently Unemployed: No Education: Trade/Vocational Certificate Living arrangements: with family Occupation/Education: occupation Spiritual care concerns: No Anes - Eval Final PreProcedure Day of Procedure 08/13/25 10:27 Patient weight: normal Heart: regular rate and rhythm Lungs: normal air movement Airway: Mallampati scale class II Neurological: alert and oriented Last oral intake: >/= 8 hours ASA classification: II Emergent: no Anesthetic plan: proceed Anesthesia type and monitoring: general ETT and standard monitoring Results Review: All pre-operative results and documents have been reviewed as part of the pre- operative evaluation. Informed Consent: The patient's anesthetic plan and its attendant risks and benefits were discussed with the patient/family/POA. Questions were solicited and answers provided to the satisfaction of the patient/family/POA.
[2025-08-13] MEDS: ACETAMINOPHEN 500 MG TABLET 1000 MG PO ×3 (10:30→22:31)
[2025-08-13] MEDS: LACTATED RINGERS 1,000 ML 30 ML IV CONT ×2 (10:35→12:46)
[2025-08-13] MEDS: KETOROLAC 15 MG/ML VIAL (*BKC) IV PUSH (10:35)
[2025-08-13] MEDS: ceFAZolin 2 GM in SODIUM CHLORIDE 0.9% IV 50 ML 100 ML IVPB (10:49)
--- NOTE | 2025-08-13 11:41 | S_PTH ---
PATIENT: Michelle Stone LOC: [facility] U#:[id number] AGE/SX: 39/F ROOM: RE08/13/[address]: Manohar Deshpande MD : 1985 BED: DIS: 08/14/2025 SPEC #: [id number] RECD: 08/13/25 12:57 STATUS: SHEY REQ #: [id number] MARYLOU: 08/13/25 11:[address]: Manohar Griffith DEPT: [facility] Surgical RECD BY: Jumana Alcantar ENTERED: 08/13/25 12:58 SP TYPE: Surgical OTHR DR: Rosetta Larsen DO Tissues: A - Uterus Procedures: Hematoxylin and Eosin Stain Gross and Microscopic Level 5
--- NOTE | 2025-08-13 11:54 | P.OP_ITS ---
Procedure Note - Detailed Date of Procedure 08/13/25 Pre-op Diagnosis Uterine prolapse, dyspareunia,pelvic pain Post-op Diagnosis Same Procedure Performed Robotic total vaginal hysterectomy and bilateral salpingectomy Surgeon Manohar Deshpande MD Anesthesia General Indications 39-year-old multiparous female status post tubal with pelvic pain dyspareunia prolapse Findings Enlarged uterus with fibroids. Uterine prolapse. Tubes status post tubal ligation. Description of Procedure The patient was prepped and draped in the normal sterile fashion placed in the dorsal lithotomy position. Under excellent general trach anesthesia weighted speculum placed in posterior fornix of vagina anterior lip of the cervix grasped with single-tooth tenaculum. Uterus sounded to 11cm. Serial dilatation fragmented dilators performed followed by passage of the 10. JJ and the number 3 cold cup. Next the 16 [place] catheter was placed in the bladder and the single-tooth tenaculum was removed and the weighted speculum removed. The gloves were changed. A supraumbilical incision made the Veress needle passed in the abdomen. Abdomen filled with CO2 gas [id number]. The 8mm trocar advanced in the abdomen. Downside visualized and none injury seen. Patient placed in Trendelenburg and right left lateral quadrant incisions made. 8mm trocars advanced into the abdomen under direct visualization assuring no injury. A right upper quadrant incision made the 8mm trocar advanced under direct visualization assuring no injury. The robot was docked. Attention was turned to the student financial services counselor. The left round ligament grasped, burned, cut. Anteriorly a a bladder flap was formed by sharply dissecting the peritoneum and reflecting it caudally away from the cervix uterus the opposite round ligament which was clamped, burned, cut. Distal portion of the left fallopian tube was transected away from the ovarian complex and passed off through the assistant boiler operator port. The stump then was left at its origin this was repeated on the contralateral side with right tube. Next utero-ovarian ligament on the left was skeletonized to conserve left ovary this was clamped, burned, this was brought to level of previously cut round ligament. In similar fashion conserving the right ovary, the utero-ovarian ligament was clamped, burned, cut brought to level of previously cut round ligament. Cardinal broad ligaments were then serially skeletonized clamping burning cutting and hugging the cervix uterus until the large tortuous uterine vessels were seen right left. These were clamped, burned, cut. Similarly on the right the cardinal broad ligaments were skeletonized clamping burning cutting and hugging the cervix uterus until the large tortuous vessels were seen on right these were individually clamped, burned, cut. Blanching the uterus was noted and a colpotomy incision made. Cervix uterus and portions of tubes removed through the vagina. The vagina then closed with continuous running 0V lock from lateral edge to lateral edge back to midline. Irrigation undertaken to clear hemostasis was assured and the robot was undocked. The gas removed from the abdomen. The trocars removed the incisions closed with 4 Monocryl and glue. QBL was 25cc. All sponge, needle, instrument counts were correct. Patient went recovery in satisfactory condition Estimated Blood Loss 25 Drains No Packing No Pathology Yes Complications No immediate complications Condition Stable Disposition PACU
--- NOTE | 2025-08-13 11:59 | PM.DS ---
DS: Admitting Diagnosis Discharge Date 08/14/2025 Admitting Diagnosis Uterine prolapse/uterine pelvic pain DS: Discharge Diagnosis Discharge Diagnosis (1) Menorrhagia: Code(s): N92.0 - Excessive and frequent menstruation with regular cycle Status: Acute (2) Pelvic pain: Code(s): R10.20 - Pelvic and perineal pain unspecified side Status: Acute (3) Uterine prolapse: Code(s): N81.4 - Uterovaginal prolapse, unspecified Status: Acute DS: Summary Hospital Course Reason for hospitalization: Patient underwent robotic total vaginal hysterectomy bilateral salpingectomy on 08/13/2025 Hospital Course: The patient's hospital course unremarkable. She remained afebrile. She was up, voiding without difficulty, eating regular diet, ambulating, and generally without complaints. Time Spent with Patient Time attestation: Total time spent providing and/or coordinating discharge services: Exam Const: General: cooperative, healthy appearing and comfortable Nutritional Appearance: average body habitus Orientation/consciousness: oriented to person, oriented to place and oriented to time Resp: Effort & Inspection: normal respiratory effort Cardio: Rate: regular rate Rhythm: regular rhythm Heart sounds: S1 normal heart sound present and S2 normal heart sound present GI: Inspection: normal to inspection : External Female Exam: normal external appearance Speculum Exam - Vagina: normal appearance of the vagina Speculum Exam - Cervix: normal appearance of the cervix (Second-degree prolapse) Bimanual exam- vagina & uterus: enlarged and Uterine tenderness Bimanual Exam- Adnexa, other: normal adnexae DS: Data Data Completed and Pending Pending studies at discharge: Pending at discharge 08/13/25 11:41 Surgical [PTH] Routine Discharge Plan Discharge Patient Disposition: Home Discharge Instructions: Remove the Scopolamine patch that was placed behind your ear in 72 hours or less. Wash your hands after touching. Patient Language: Macedonian Stand Alone Forms: General Discharge Instructions Follow-up/Referrals: Manohar Griffith MD [Physician, BALE COVERER] Discharge Medications: New hydrocodone-acetaminophen 5-325 mg tablet 1 tablet PO Q4H PRN (Reason: pain) Qty: 20 0RF No Action Zepbound 7.5 mg/0.5 mL pen injector 7.5 mg subcut WEEKLY Qty: 2 4RF Patient Comments: Mondays
[2025-08-13] MEDS: ONDANSETRON INJ 4 MG/2 ML VIAL IV PUSH (12:13)
[2025-08-13] MEDS: HYDROmorphone HCL INJ (*CRX) 1 MG/ML SYR 0.25 MG IV PUSH ×5 (12:15→13:05)
--- NOTE | 2025-08-13 13:20 | ADMGEN ---
This patient, Michelle Stone, was admitted to OB 2nd Floor Room 290-00. Patient/family oriented to hospital policies and general routines including ID bracelet, bed and alarms, visiting hours, pain management, procedures, bathroom and other care routines, personal items, smoking policy, room service/diet, and visiting hours. Information on how to activate the Rapid Response Team has been discussed. Patient/Family are encouraged to report perceived risks to care and to ask questions if they do not understand what they are told or what they should do.
[2025-08-13] MEDS: DEXTROSE 5%/LACTATED RINGERS 1,000 ML 125 ML IV CONT ×2 (13:46→22:31)
[2025-08-13] MEDS: oxyCODONE HCL (*CRX) 5 MG TAB IR PO ×2 (13:50→18:46)
[2025-08-13] MEDS: DOCUSATE SODIUM 100 MG CAPSULE PO (16:34)
[2025-08-13] MEDS: SIMETHICONE 80 MG TAB.CHEW PO ×2 (16:34→20:23)
[2025-08-13] MEDS: KETOROLAC 30 MG/ML VIAL (*BKC) IV PUSH ×2 (16:35→22:28)
[2025-08-13] MEDS: SODIUM CHLORIDE 0.9% IV 500 ML IV CONT (18:08)
[2025-08-13] MEDS: oxyCODONE HCL (*CRX) 5 MG TAB IR 10 MG PO (20:11)
[2025-08-14] MEDS: ACETAMINOPHEN 500 MG TABLET 1000 MG PO (03:53)
[2025-08-14 03:54] VITALS: BP 94/59; PULSE 71; RESP 18; TEMP 36.5; O2SAT 100
[2025-08-14] MEDS: IBUPROFEN 600 MG TABLET PO (03:54)
[2025-08-14 04:27] LABS: Hematocrit 30.1 % (37.0-47.0); Hemoglobin 9.9 g/dL (12.0-15.0); Immature Granulocyte Percent A 0.4 % (0-0.5); Immature Platelet Fraction Pct 6.9 % (0.9-11.2); Lymphocytes Absolute Auto 1.35 K/mm3 (0.9-3.2); Mean Corpuscular HGB Conc 32.9 g/dl (32-36); Mean Corpuscular Hemoglobin 31.0 pg (26-34); Mean Corpuscular Volume 94.4 fl (80-100); Nucleated Red Blood Cells Absolute Auto 0.000 K/mm3 (0.0-0.012); Nucleated Red Blood Cells Perc 0.0 % (0.0-0.2); Platelet Count Result 124 k/mm3 (150-375); Red Blood Count 3.19 M/mm3 (4.2-5.4); White Blood Count 5.4 K/mm3 (4.5-10.0)
[2025-08-14] MEDS: oxyCODONE HCL (*CRX) 5 MG TAB IR 10 MG PO (04:35)
[2025-08-14 06:42] VITALS: BP 102/57; PULSE 54; RESP 18; TEMP 36.4; O2SAT 100
[2025-08-14] MEDS: oxyCODONE HCL (*CRX) 5 MG TAB IR PO (06:42)
--- NOTE | 2025-08-14 08:04 | PM.GYNPNOP ---
OPERATIONAL COMMUNICATION CHIEF - A/P Assessment and plan (1) Menorrhagia: Code(s): N92.0 - Excessive and frequent menstruation with regular cycle Status: Acute (2) Pelvic pain: Code(s): R10.20 - Pelvic and perineal pain unspecified side Status: Acute (3) Uterine prolapse: Code(s): N81.4 - Uterovaginal prolapse, unspecified Status: Acute Postoperative Procedures: Procedures Operation Date: 08/13/25 11:30 Actual Procedure Side Surgeon p Robotic Assisted Total Vaginal Hysterectomy with Bilateral Salpingectomy Bilateral Manohar Deshpande MD Time Spent With Patient Time: Total time spent is greater than 50% in coordination of care (as documented) at patient's floor/unit and/or counseling patient: Time with patient: less than 15 minutes OPERATIONAL COMMUNICATION CHIEF- PN:Subj Post-Op Subjective Date/time seen: 08/14/25 08:04 Subjective: patient reports feeling better, patient has no complaints, patient desires discharge, pain is well controlled and patient is tolerating oral intake Review of Systems Review of Systems: CONSTITUTIONAL: Denies fever, chills, or sweats. EYES: Denies visual changes, redness, or discharge. ENT: Denies rhinorrhea, congestion, sore throat, or otalgia. CARDIOVASCULAR: Denies chest pain, palpitations, or edema. RESPIRATORY: Denies cough or dyspnea. GASTROINTESTINAL: Denies abdominal pain, nausea, vomiting, or diarrhea. GENITOURINARY: Reports dysuria, frequency, urgency. Denies hematuria. SKIN: Denies rash or itching. MUSCULOSKELETAL: Denies back pain, joint pain, or myalgia. NEUROLOGIC: Denies headache, numbness, or weakness. PSYCHIATRIC: Denies anxiety or depression. All other systems reviewed are negative, except as documented in HPI. Exam Const: General: cooperative, healthy appearing and comfortable Nutritional Appearance: average body habitus Orientation/consciousness: oriented to person, oriented to place and oriented to time Resp: Effort & Inspection: normal respiratory effort Cardio: Rate: regular rate Rhythm: regular rhythm Heart sounds: S1 normal heart sound present and S2 normal heart sound present GI: Inspection: normal to inspection : External Female Exam: normal external appearance Speculum Exam - Vagina: normal appearance of the vagina Speculum Exam - Cervix: normal appearance of the cervix (Second-degree prolapse) Bimanual exam- vagina & uterus: enlarged and Uterine tenderness Bimanual Exam- Adnexa, other: normal adnexae OPERATIONAL COMMUNICATION CHIEF - PN: Obj Data Vital Signs Vital Signs: Vital Signs - 24 hr 08/13/25 09:50 08/13/25 12:04 08/13/25 12:11 Temperature 96.9 F L 97.4 F L Pulse Rate 79 61 60 Respiratory Rate 16 20 16 Blood Pressure 121/71 104/67 110/63 Pulse Oximetry 100 100 100 Oxygen Delivery Room Air Simple Face Mask Simple Face Mask Oxygen Flow Rate 8 8 08/13/25 12:25 08/13/25 12:35 08/13/25 12:50 Temperature 97.6 F Pulse Rate 72 65 68 Respiratory Rate 18 14 14 Blood Pressure 102/65 103/57 L 109/56 L Pulse Oximetry 100 100 100 Oxygen Delivery Simple Face Mask Room Air Room Air Oxygen Flow Rate 8 08/13/25 13:05 08/13/25 13:20 08/13/25 13:20 Temperature 98.4 F Pulse Rate 68 69 Respiratory Rate 12 14 Blood Pressure 105/67 101/56 L Pulse Oximetry 100 99 Oxygen Delivery Room Air Room Air Oxygen Flow Rate 08/13/25 16:00 08/13/25 16:00 08/13/25 17:54 Temperature 98.4 F Pulse Rate 62 60 Respiratory Rate 16 Blood Pressure 94/59 L 85/53 L Pulse Oximetry 100 100 Oxygen Delivery Room Air Room Air Oxygen Flow Rate 08/13/25 18:30 08/13/25 19:35 08/13/25 19:35 Temperature 97.7 F Pulse Rate 57 L Respiratory Rate 18 Blood Pressure 110/76 99/65 L Pulse Oximetry 100 Oxygen Delivery Room Air Oxygen Flow Rate 08/13/25 23:58 08/13/25 23:58 08/14/25 03:54 Temperature 98.1 F Pulse Rate 61 Respiratory Rate 15 Blood Pressure 94/55 L Pulse Oximetry 100 Oxygen Delivery Room Air Room Air Oxygen Flow Rate 08/14/25 03:54 08/14/25 06:42 Temperature 97.7 F 97.5 F L Pulse Rate 71 54 L Respiratory Rate 18 18 Blood Pressure 94/59 L 102/57 L Pulse Oximetry 100 100 Oxygen Delivery Oxygen Flow Rate Intake/Output Intake/Output: Intake & Output 11/19/25 11/20/25 11/21/25 11/22/25 23:59 23:59 23:59 23:59 Intake Total 1740 1001 Output Total 130 375 Balance 1610 626 Meds/Results Medications: Active Medications Generic Name Dose Route Start Last Admin Trade Name Freq PRN Reason Stop Dose Admin Acetaminophen 1,000 mg 08/13/25 13:13 08/14/25 03:53 Acetaminophen 500 Mg Tablet PO 1,000 mg Q6HR CED Administration Docusate Sodium 100 mg 08/13/25 17:00 08/13/25 16:34 Docusate Sodium 100 Mg Capsule PO 100 mg BID CED Administration Enoxaparin Sodium 40 mg 08/14/25 09:00 Enoxaparin 40 Mg/0.4 Ml Syringe SUB-Q DAILY CDE Dextrose/Lactated Ringer's 1,000 mls @ 125 mls/hr 08/13/25 13:13 08/14/25 06:57 Dextrose 5%/Lactated Ringers IV CONT Infused .Q8H CED Infusion Ibuprofen 600 mg 08/14/25 06:00 08/14/25 03:54 Ibuprofen 600 Mg Tablet PO 600 mg Q6HR CED Administration Naloxone HCl 0.1 mg 08/13/25 13:13 Naloxone Hcl 0.4 Mg/Ml Vial IV PUSH Q2M PRN Respiratory rate less than 10 Ondansetron HCl 4 mg 08/13/25 13:13 Ondansetron Inj 4 Mg/2 Ml Vial IV PUSH Q6H PRN Nausea And Vomiting Oxycodone HCl 5 mg 08/13/25 13:13 08/14/25 06:42 Oxycodone Hcl (*Crx) 5 Mg Tab Ir PO 5 mg Q4H PRN Administration Pain Rated 4-6 Oxycodone HCl 10 mg 08/13/25 13:13 08/14/25 04:35 Oxycodone Hcl (*Crx) 5 Mg Tab Ir PO 10 mg Q6H PRN Administration Pain Rated 7-10 Simethicone 80 mg 08/13/25 13:13 08/13/25 16:34 Simethicone 80 Mg Tab.Chew PO 80 mg TIDWM CED Administration Simethicone 80 mg 08/13/25 20:14 08/13/25 20:23 Simethicone 80 Mg Tab.Chew PO 80 mg Q2HR PRN Administration Gas Discomfort Labs 08/14/25 03:47 Labs: Laboratory Results - last 24 hr 08/14/25 03:47 WBC 5.4 RBC 3.19 L Hgb 9.9 L Hct 30.1 L MCV 94.4 MCH 31.0 MCHC 32.9 RDW 12.5 Plt Count 124 L MPV 11.7 H Immature Gran % (Auto) 0.4 Neut % (Auto) 66.7 Lymph % (Auto) 25.1 [place] % (Auto) 7.4 Eos % (Auto) 0.2 Baso % (Auto) 0.2 Lymph # (Auto) 1.35 [place] # (Auto) 0.4 Eos # (Auto) 0.0 Baso # (Auto) 0.0 Abs Immat Gran (auto) 0.02 Absolute Neuts (auto) 3.6 Absolute Nucleated RBC 0.000 Nucleated RBC % 0.0 % Immature Plt Fraction 6.9
[2025-08-14] MEDS: DOCUSATE SODIUM 100 MG CAPSULE PO (08:43)
[2025-08-14] MEDS: SIMETHICONE 80 MG TAB.CHEW PO (08:43)
[2025-08-16 11:46] LABS: BEDSIDEPREGUCG Negative (Negative)
== END 2025-08-14 09:50 | disposition home or self-care (01) ==
LOC: ANHSURGERY 09:44 → ANHOB2 13:17
PROVIDERS: PCP Family Medicine; Visit Provider Obstetrics & Gynecology
PROC: (CPT 58552; principal; 2025-08-13 11:30)
DX: N81.4 Uterovaginal prolapse, unspecified (principal); Z79.85 Long-term (current) use of injectable non-insulin antidiabetic drugs; Z79.891 Long term (current) use of opiate analgesic
CPT/HCPCS: 58552; S2900; 36415; 85025; 85055; 88307; 99199; J0690; A9270; J1100; J1171; J1885; J2003; J2250; J2405; J2704; J7030; J7040; J7120; J7121